=== PATIENT | male | born 1970 | race Hispanic/Latino ===

== ENCOUNTER 2016-04-16 06:31 | Day surgery (SDC) | payer BC ==
[2016-04-16] MEDS ORDERED: ECOTRIN PO ONE (06:58)
[2016-04-16] MEDS ORDERED: NACL 0.9% 500 ML 500 ML IV SCH (07:00)
[2016-04-16 07:14] LABS: Basophils % (Auto) 0.7 % (0.0-1.8); Hematocrit 41.3 % (35.5-45.6); Hemoglobin 13.2 gm/dl (11.8-15.2); Mean Corpuscular HGB Conc 32 % (32-34); Mean Corpuscular Hemoglobin 26 pg (28-32); Mean Corpuscular Volume 81 fl (84-94); Platelet Count 299 K/mm3 (140-440); Red Blood Count 5.08 M/mm3 (3.65-5.03); Red Cell Distribution Width 16.4 % (13.2-15.2); White Blood Count 9.8 K/mm3 (4.5-11.0)
[2016-04-16 07:25] LABS: INR 1.01 (0.87-1.13)
[2016-04-16 07:26] LABS: Anion Gap 17 mmol/L; BUN/Creatinine Ratio 15.83; Blood Urea Nitrogen 19 mg/dL (9-20); Calcium 8.7 mg/dL (8.4-10.2); Carbon Dioxide 25 mmol/L (22-30); Chloride 100.1 mmol/L (98-107); Glucose 111 mg/dL (75-100); Potassium 4.1 mmol/L (3.6-5.0); Sodium 138 mmol/L (137-145)
[2016-04-16] MEDS ORDERED: HEPARIN 10,000 UNITS/10 ML ONE (09:09)
[2016-04-16] MEDS ORDERED: VERSED IV ONE (09:09)
[2016-04-16] MEDS ORDERED: HEPARIN/NS 5000 UNIT/500ML(CATH LAB) 1,000 ML IR ONE (09:09)
[2016-04-16] MEDS ORDERED: SUBLIMAZE ONE (09:09)
[2016-04-16] MEDS ORDERED: NITROGLYCERIN SYRINGE 3 ML ONE (09:10)
[2016-04-16] MEDS ORDERED: CALAN ONE (09:10)
[2016-04-16] MEDS ORDERED: XYLOCAINE 2% INFILTRATI ONE (09:12)
[2016-04-16] MEDS ORDERED: HEPARIN/NS 5000 UNIT/500ML(CATH LAB) 500 ML IR ONE (09:25)
[2016-04-16] MEDS ORDERED: LASIX ONE (09:32)
--- NOTE | 2016-04-16 09:51 | Short Stay Summary ---
Short Stay Documentation Date of service: 04/16/16 - History H&P: obtained from office - Allergies and Medications Current Medications: Allergies No Known Allergies Allergy (Verified 04/16/16 06:55) Home Medications Medication Instructions Recorded Confirmed Last Taken Type Budesoni/Formotero 160-4.5(Nf) 2 puff IH BID 04/02/16 04/16/16 04/16/16 07:18 History [Symbicort 160-4.5 (Nf)] 2 puffs Elvitegr/Cobicist/Emtric/Tenof 1 each PO DAILY 04/02/16 04/16/16 04/15/16 History [Stribild Tablet] 1 tab FLUoxetine HCL [FLUoxetine] 20 mg PO DAILY 04/02/16 04/16/16 04/15/16 History 20mg Omeprazole 40 mg PO DAILY 04/02/16 04/16/16 04/15/16 History 40mg hydrOXYZINE PAMOATE [hydrOXYzine 50 mg PO Q6H PRN 04/02/16 04/16/16 04/15/16 History Pamoate] 1 tab Furosemide [Lasix TAB] 40 mg PO 0600,1800 #60 tablet 04/06/16 04/16/16 04/15/16 Rx 40mg Lisinopril [Zestril TAB] 5 mg PO QDAY #30 tablet 04/06/16 04/16/16 04/15/16 Rx 5mg Carvedilol [Carvedilol] 3.125 mg PO DAILY 04/16/16 04/16/16 04/15/16 History 3.125mg Moxifloxacin HCl [Moxifloxacin HCl] 400 mg PO DAILY 04/16/16 04/16/16 04/15/16 History 400mg Active Medications Sodium Chloride (Nacl 0.9% 500 Ml) 500 mls @ 50 mls/hr IV DIRECT ROSARIO Stop: 04/16/16 16:59 Last Admin: 04/16/16 07:43 Dose: 50 mls/hr - Brief post op/procedure progress note Date of procedure: 04/16/16 Pre-op diagnosis: cardiomyopathy Post-op diagnosis: same Anesthesia: local Estimated blood loss: none Pathology: none - Disposition Condition at discharge: Good Disposition: DISCHARGED TO HOME OR SELFCARE - Discharge Diagnoses (1) Dilated cardiomyopathy Status: Chronic (2) HIV disease Status: Chronic (3) Hypertension Status: Chronic Qualifiers: Hypertension type: essential hypertension (4) Obstructive sleep apnea Status: Chronic Short Stay Discharge Plan Activity: advance as tolerated Diet: low fat, low cholesterol, low salt Wound: keep clean and dry
[2016-04-16] MEDS ORDERED: NORCO 5/325 PO PRN (10:21)
[2016-04-16] MEDS ORDERED: ULTRAM PO PRN (10:21)
--- NOTE | 2016-04-16 11:17 | Cardiac Catherization Report ---
LEFT HEART CATHETERIZATION ORDERING PHYSICIAN: Benny Adams MD CLINICAL INFORMATION: This is a 46-year-old gentleman with cardiomyopathy, on echo EF 20-25%. The patient has been treated medically with beta blockers, LENKA inhibitors, and diuretics, here for a left heart catheterization for definitive diagnosis of cardiomyopathy. Left heart catheterization performed via the right radial artery. Normal Gerhard's test. Sterile technique, local anesthesia. 5-Thai radial sheath inserted. Left system engaged with a JL3.5 catheter. Right system engaged with JR4 catheter. FINDINGS: Left main is large and patent, bifurcates into large circumflex and AV groove is patent, goes into large OM1 that is patent. OM2 is a medium caliber vessel that is patent. LAD has a high takeoff, large caliber vessels, patent. There is a high diagonal 1, is also large caliber vessel, patent, then bifurcates into [id number] caliber diagonal 2 that is patent with mild luminal irregularities and the rest of the LAD is a small caliber vessel, patent with mild luminal irregularities. RCA engaged with JR4 catheter, is a large dominant vessel, patent from proximally and distally, bifurcates into a large PDA and PLV, multiple branches. LV gram done in [place] and [place] view shows [id number] LV dysfunction, EF approximately 30%. LVEDP of 35-40 mmHg. LV is 145, aortic is 143/100. No gradient across the aortic valve on pullback. 5-Thai catheters were taken over a guidewire, 5-Thai radial sheath was discontinued. Radial dressing applied. No hematoma. No bleeding. SUMMARY: 1. Large epicardial vessels, left main patent, LAD patent, circumflex patent. OM1, OM2 patent. RCA patent. 2. Moderate LV dysfunction, EF approximately 30%. LVEDP of 35-40 mmHg. Continue aggressive medical management, discussed this with the patient and the patient's family. JOB# [id number] GENA/PRABHU
[2016-04-16 11:56] VITALS: BP 124/89
== END 2016-04-16 12:20 | disposition home or self-care (01) ==
LOC: OPU 06:31
PROVIDERS: ATTEND Internal Medicine
DX: I42.0 Dilated cardiomyopathy (principal); I11.0 Hypertensive heart disease with heart failure; I50.23 Acute on chronic systolic (congestive) heart failure; G47.33 Obstructive sleep apnea (adult) (pediatric); Z87.891 Personal history of nicotine dependence
CPT/HCPCS: 36415; 80048; 85025; 85610; 85730; 93005; 93010; 93458; C1894; J1644; J1940; J7040; J2250; J3010; Q9967